=== PATIENT | female | born 1995 | race Caucasian/White ===

== ENCOUNTER 2017-08-22 01:15 | Emergency (ER) | payer OTHER ==
[2017-08-22] MEDS: ONDANSETRON (ODT) 4 MG TAB ODT (02:33)
[2017-08-22] MEDS: KETOROLAC 60 MG INJ IM (02:33)
[2017-08-22 02:52] LABS: ADD UMIC NO; UR ASCORBIC ACID NEGATIVE (NEGATIVE); UR BILIRUBIN (Dip) NEGATIVE (NEGATIVE); UR BLOOD (Dip) NEGATIVE (NEGATIVE); UR CLARITY CLEAR (CLEAR); UR COLOR STRAW (YELLOW); UR GLUCOSE (Dip) NEGATIVE (NEGATIVE); UR KETONES (Dip) NEGATIVE (NEGATIVE); UR LEUKOCYTE ESTERASE (Dip) NEGATIVE Leu/ul (NEGATIVE); UR NITRITE (Dip) NEGATIVE (NEGATIVE); UR SPECIFIC GRAVITY (Dip) 1.012 (1.003-1.030); UR TOTAL PROTEIN (Dip) NEGATIVE (NEGATIVE); UR UROBILINOGEN (Dip) NEGATIVE (NEGATIVE)
[2017-08-22 02:53] LABS: ADD MAN DIFF? NO
[2017-08-22 02:56] LABS: BASOPHILS % 0.3 % (0.0-2.0); EOSINOPHILS # 0.2 10^3/ul (0.0-0.5); EOSINOPHILS % 2.3 % (0.0-7.0); HEMATOCRIT 37.8 % (37.0-47.0); HEMOGLOBIN 12.8 g/dl (12.0-16.0); LYMPHOCYTES # 2.6 10^3/ul (0.8-2.9); LYMPHOCYTES % 32.8 % (18.0-55.0); MEAN CORPUSCULAR HEMOGLOBIN 30.2 pg (29.0-33.0); MEAN CORPUSCULAR HGB CONC 33.9 g/dl (32.0-37.0); MEAN CORPUSCULAR VOLUME 89.2 fl (72.0-104.0); MEAN PLATELET VOLUME 10.1 fl (7.4-10.4); MONOCYTE # 0.5 10^3/ul (0.3-0.9); MONOCYTES % 5.6 % (0.0-13.0); NEUTROPHIL # 4.7 10^3/ul (1.6-7.5); NEUTROPHILS % 58.6 % (30.0-74.0); PLATELET COUNT 242 10^3/UL (140-415); RED BLOOD COUNT 4.24 10^6/ul (4.20-5.40); RED CELL DISTRIBUTION WIDTH 12.9 % (11.5-14.5)
[2017-08-22 03:19] LABS: ANION GAP 16 (8-16); BLOOD UREA NITROGEN 17 mg/dl (7-20); CALCIUM 9.7 mg/dl (8.4-10.2); CARBON DIOXIDE 26 mmol/L (21-31); CHLORIDE 106 mmol/L (97-110); CREATININE 1.06 mg/dl (0.44-1.00); GLUCOSE 100 mg/dl (70-220); POTASSIUM 4.1 mmol/L (3.5-5.1); SODIUM 144 mmol/L (135-144)
== END 2017-08-22 05:01 | disposition home or self-care (01) ==
LOC: E/R 01:15
DX: R10.11 Right upper quadrant pain (principal); R11.0 Nausea
CPT/HCPCS: 80048; 81003; 85025; 96372; 99284-25